=== PATIENT | male | born 1965 | race Caucasian/White ===

== ENCOUNTER 2016-12-27 16:36 | Emergency (ER) | payer SELFPAY ==
[2016-12-27 16:47] LABS: EOSINOPHIL (%) 2.4 % (0-5); EOSINOPHIL COUNT 0.2 K/uL (0-0.3); HEMATOCRIT 41.6 % (38.0-50.0); IMMATURE GRANULOCYTE (%) 0.8 % (0.0-0.7); IMMATURE GRANULOCYTE COUNT 0.1 K/uL; INSTRUMENT ABS NEUTROPHIL CT 4.6 K/uL; LYMPHOCYTE COUNT 3.1 K/uL (1.0-2.8); MCH 30.4 PG (29.0-34.0); MCHC 34.1 G/DL (30.0-36.0); MCV 89.1 FL (86-99); MEAN PLAT.VOLUME 8.4 uM^3 (9.0-12.4); MONOCYTE COUNT 0.8 K/uL (0-0.8); NEUTROPHIL (%) 52.1 % (45-76); NEUTROPHIL COUNT 4.6 K/uL (1.8-6.4); PLATELET COUNT 282 K/uL (156-360); RBC DIS.WIDTH-CV 13.2 % (11.8-14.6); RBC DIS.WIDTH-SD 43.4 % (39-53); RED BLOOD COUNT 4.67 M/uL (4.00-5.50); WHITE BLOOD COUNT 8.8 K/uL (4.1-10.2)
[2016-12-27 16:55] LABS: AMYLASE 87 IU/L (1-118); CHLORIDE 104 mEq/L (99-109); POTASSIUM 3.6 mEq/L (3.7-5.4); SODIUM 135 mEq/L (136-147)
[2016-12-27 16:57] LABS: GLUCOSE 83 mg/dL (70-99)
[2016-12-27 16:58] LABS: ANION GAP 9 MEQ/L (2-14)
[2016-12-27 17:00] LABS: SERUM ETHYL ALCOHOL 245 mg/dL
[2016-12-27 17:01] LABS: GFR ESTIMATE (CALCULATED) > 59 mL/min/
[2016-12-27 17:02] LABS: UREA NITROGEN (BUN) 10 mg/dL (9-23)
[2016-12-27 17:04] LABS: LIPASE 93 U/L (1.0-51.0)
[2016-12-27] MEDS ORDERED: ULTRAM50 MG PO (18:14)
== END 2016-12-27 18:49 | disposition home or self-care (01) ==
LOC: TRA 16:36
PROVIDERS: Emergency Medicine
DX: S20.212A Contusion of left front wall of thorax, initial encounter (principal); F10.129 Alcohol abuse with intoxication, unspecified; Y90.8 Blood alcohol level of 240 mg/100 ml or more; W28.XXXA Contact with powered lawn mower, initial encounter; Y93.H2 Activity, gardening and landscaping
CPT/HCPCS: 70450; 71010; 71260; 72125; 72129; 72132; 74177; 80048; 81003; 82150; 83690; 85025; 86850; 86900; 86901; 99281; 99284; G0480; J3010